=== PATIENT | female | born 1995 | race Hispanic/Latino ===

== ENCOUNTER 2020-09-19 18:02 | Emergency (ER) | payer MEDICAID ==
[~2020-09-19] VITALS: Ht 152.4 cm; Wt 67.1 kg
[2020-09-19 18:05] VITALS: BP 105/65
[2020-09-19 18:47] LABS: APPEARANCE,URINE Clear (CLEAR); BILIRUBIN,URINE Negative (NEGATIVE); COLOR,URINE Yellow (YELLOW); GLUCOSE, URINE (UA) Negative (NEGATIVE); KETONES,URINE Negative (NEGATIVE); LEUKOCYTE ESTERASE ,URINE Negative (NEGATIVE); NITRATE,URINE Negative (NEGATIVE); OCCULT BLOOD,URINE Negative (NEGATIVE); PROTEIN,URINE Negative (NEGATIVE)
[2020-09-19 18:54] LABS: BASOPHILS % (AUTO) 0.4 % (0.0-5.0); EOSINOPHILS % (AUTO) 0.6 % (0.0-8.0); HEMATOCRIT 37.9 % (36-48); LYMPHOCYTES % (AUTO) 25.7 % (21.0-51.0); MEAN CORPUSCULAR HGB CONC 33.2 g/dL (32.0-36.0); MEAN CORPUSCULAR VOLUME 90.2 fL (79-99); MONOCYTES % (AUTO) 6.8 % (3.0-13.0); NEUTROPHILS % (AUTO) 66.2 % (40.0-77.0); PLATELET COUNT (AUTO) 192 K/uL (130-400); RED CELL DISTRIBUTION WIDTH 12.8 % (11.0-15.5); WHITE BLOOD COUNT (AUTO) 9.7 K/uL (4.8-10.8)
[2020-09-19 19:20] VITALS: BP 102/62
[2020-09-19 19:34] LABS: ALBUMIN 3.7 g/dL (3.5-5.0); BILIRUBIN,TOTAL 0.2 mg/dL (0.2-1.0); CREATININE 0.7 mg/dL (0.5-1.5); POTASSIUM 3.6 mmol/L (3.5-5.1); TOTAL PROTEIN, SERUM 7.7 g/dL (6.0-8.3)
[2020-09-19] MEDS ORDERED: PREN-61 PO (19:44)
[2020-09-19 20:45] VITALS: BP 111/68
== END 2020-09-19 20:47 | disposition home or self-care (01) ==
LOC: EDH 18:25
DX: O26.891 Other specified pregnancy related conditions, first trimester (principal); R10.2 Pelvic and perineal pain; Z3A.01 Less than 8 weeks gestation of pregnancy
CPT/HCPCS: 36415; 76801; 80053; 81003; 84702; 85025

== ENCOUNTER 2021-03-02 20:28 | Observation (INO) | payer MEDICAID ==
[~2021-03-02] VITALS: Ht 152.4 cm; Wt 68.5 kg
[~2021-03-02 20:28] MED LIST: PREN-61 PO
[2021-03-02] MEDS ORDERED: PREN-196 PO (20:49)
[2021-03-02] MEDS ORDERED: FERR-82 PO (20:49)
[2021-03-02 21:00] LABS: APPEARANCE,URINE Clear (CLEAR); BILIRUBIN,URINE Negative (NEGATIVE); COLOR,URINE Yellow (YELLOW); GLUCOSE, URINE (UA) Negative (NEGATIVE); KETONES,URINE 15 mg/dL (NEGATIVE); LEUKOCYTE ESTERASE ,URINE Negative (NEGATIVE); NITRATE,URINE Negative (NEGATIVE); OCCULT BLOOD,URINE Negative (NEGATIVE); PROTEIN,URINE Negative (NEGATIVE)
[2021-03-02] MEDS ORDERED: LACTATED RINGERS 1000ML 1,000 ML IV SCH (21:00)
[2021-03-02 21:07] LABS: AMPHET/METH SCREEN,URINE NEGATIVE (NEGATIVE); BARBITURATE SCREEN, URINE NEGATIVE (NEGATIVE); BENZODIAZEPINES SCREEN,URINE NEGATIVE (NEGATIVE); CANNABINOID SCREEN,URINE NEGATIVE (NEGATIVE); COCAINE SCREEN,URINE NEGATIVE (NEGATIVE); OPIATE SCREEN,URINE NEGATIVE (NEGATIVE); PHENCYCLIDINE SCREEN,URINE NEGATIVE (NEGATIVE)
[2021-03-02 21:32] VITALS: BP 104/64
[2021-03-02] MEDS ORDERED: CEFTRIAXONE 1G VIAL IVP ONE (22:00)
[2021-03-02 22:03] LABS: BASOPHILS % (AUTO) 0.1 % (0.0-5.0); EOSINOPHILS % (AUTO) 1.6 % (0.0-8.0); HEMATOCRIT 32.6 % (36-48); MEAN CORPUSCULAR HEMOGLOBIN 29.4 pg (27.0-33.0); MEAN CORPUSCULAR HGB CONC 33.1 g/dL (32.0-36.0); MEAN CORPUSCULAR VOLUME 88.8 fL (79-99); MONOCYTES % (AUTO) 6.7 % (3.0-13.0); PLATELET COUNT (AUTO) 160 K/uL (130-400); RED BLOOD CELL COUNT(AUTO) 3.67 MIL/uL (4.00-5.50); RED CELL DISTRIBUTION WIDTH 14.1 % (11.0-15.5); WHITE BLOOD COUNT (AUTO) 9.6 K/uL (4.8-10.8)
== END 2021-03-03 07:15 | disposition home or self-care (01) ==
LOC: EDH 20:28 → LDH 20:29
PROVIDERS: ADMIT Obstetrics & Gynecology; ATTEND Obstetrics & Gynecology
DX: O26.893 Other specified pregnancy related conditions, third trimester (principal); R10.30 Lower abdominal pain, unspecified; R10.2 Pelvic and perineal pain; Z3A.29 29 weeks gestation of pregnancy; Z79.899 Other long term (current) drug therapy
CPT/HCPCS: 36415; 76770; 76805; 80305; 81003; 85025; 96361; 96374; G0378 ×9; J0696; J7120; 96360

== ENCOUNTER 2022-03-23 11:19 | Emergency (ER) | payer MEDICAID ==
[~2022-03-23] VITALS: Ht 152.4 cm; Wt 72.6 kg
[~2022-03-23 11:19] MED LIST changes: +FERR-82 PO; +PREN-196 PO
[2022-03-23 12:30] VITALS: BP 139/81
[2022-03-23] MEDS ORDERED: D-ME118S47 PO (12:35)
[2022-03-23] MEDS ORDERED: FLUT16H NASAL (12:35)
[2022-03-23] MEDS ORDERED: BENZ-39 PO (12:35)
== END 2022-03-23 13:53 | disposition left against medical advice (07) ==
LOC: EDH 11:19
DX: R50.9 Fever, unspecified (principal); R11.2 Nausea with vomiting, unspecified; J02.9 Acute pharyngitis, unspecified; R05.9 Cough, unspecified; Z79.899 Other long term (current) drug therapy; Z98.890 Other specified postprocedural states

== ENCOUNTER 2025-03-20 23:02 | Emergency (ER) | payer SELFPAY ==
[~2025-03-20] VITALS: Ht 152.4 cm; Wt 67.1 kg
[~2025-03-20 23:02] MED LIST changes: +BENZ-39 PO; +BROM118S48 PO; +FLUT16H NASAL
--- NOTE | 2025-03-20 23:16 | NUR ---
UA CUP PROVIDED
[2025-03-21 00:29] LABS: APPEARANCE,URINE CLOUDY (CLEAR); GLUCOSE, URINE (UA) NEGATIVE (NEGATIVE); LEUKOCYTE ESTERASE ,URINE 250 Leu/uL (NEGATIVE); NITRATE,URINE NEGATIVE (NEGATIVE); OCCULT BLOOD,URINE LARGE (NEGATIVE)
[2025-03-21 00:30] LABS: ADD UA MICROSCOPIC YES
[2025-03-21 00:32] LABS: IMMATURE GRANULOCYTE ABSOLUTE 0.01 K/uL (0-1); NUCLEATED RED BLOOD CELLS 0.0 % (0.0-0.19); PLATELET COUNT (AUTO) 195 K/uL (130-400); RED BLOOD CELL COUNT(AUTO) 4.10 MIL/uL (4.00-5.50); RED CELL DISTRIBUTION WIDTH 12.5 % (11.0-15.5); WHITE BLOOD COUNT (AUTO) 7.3 K/uL (4.8-10.8)
[2025-03-21 00:33] LABS: SQUAMOUS EPITHELIAL CELL,UR MOD /HPF (0-2)
[2025-03-21 00:33] LABS: CREATININE 0.7 mg/dL (0.5-1.0); GLOMERULAR FILTR. RATE CALC 119.0 mL/min (>90); GLUCOSE,RANDOM 97.0 mg/dL (70-105); SODIUM SERUM 139.0 mmol/L (136-145); UREA NITROGEN, BLOOD 8.0 mg/dL (7-18)
[2025-03-21 00:44] LABS: HCG,QUANTITATIVE 2.0 mIU/mL (0-5)
--- NOTE | 2025-03-21 00:46 | ERN ---
ED Note History of Present Illness Stated Complaint: VAGINAL BLEEDING, CRAMPING Chief Complaint: Vaginal Bleeding Time Seen by MD: 23:13 Time Seen by Midlevel: 23:13 Dictation: The patient is a 29-year-old female with a history of who presents to the emergency department with complaints of vaginal spotting onset today. Patient denies any saturating pads. Denies any abdominal pain. Denies fevers or urinary discomfort. Reports she took a test at home and was positive. Last menstrual period was February 21. A1 Allergies: Coded Allergies: No Known Drug Allergies (Unverified Allergy, Unknown, 09/19/20) Home Meds Active Scripts Cephalexin Monohydrate (Keflex) 500 Mg Cap, 500 MG PO BID for 7 Days, #14 CAP Prov:JULISSA PLUNKETT [facility] 03/21/25 Benzonatate (Tessalon Perles) 100 Mg Cap, 2 CAP PO TID PRN for COUGH for 14 Days, #42 CAP Prov:JESSENIA SANCHEZ V [facility] 03/23/22 D-Methorphan Hb/P-Epd HCl/Bpm (Bromfed Dm Cough Syrup) 118 Ml Syrup, 10 ML PO Q4HPRN PRN for COUGH for 10 Days, #200 ML Prov:JESSENIA SANCHEZ V [facility] 03/23/22 Fluticasone Propionate (Flonase Nasal [place]) 50 Mcg/[place], 1 SPRAY NASAL DAILY PRN for NASAL CONGESTION for 10 Days, #1 EA Prov:JESSENIA SANCHEZ V [facility] 03/23/22 Vit No.78/Iron/FA (Prenatabs FA Tablet) 1 Each Tablet, 1 EACH PO DAILY, #100 TAB Prov:JOHANNA DONALDSON 09/19/20 Reported Medications Ferrous Sulfate (Iron) 325 Mg Tablet, 325 MG PO DAILYLUNCH, TAB 03/02/21 Vit No.124/Iron/FA ( Vitamin Tablet) 1 Each Tablet, 1 EACH PO DAILYLUNCH, TAB 03/02/21 Past Medical History Past Medical History: No Pertinent History Surgical History: Family History: Negative Social History: Negative LMP: Feb 17, 2025 : 4 Para: 2 Aborts: 1 RN Note Reviewed/Agreed w/PFSH: Yes Review of System Dictation Constitutional: Negative for fever,chills, and weight loss Eyes: Negative for injury, pain,redness, and discharge ENT: Negative for injury,pain or swelling Cardiovascular: Negative for chest pain, palpitations, and edema Respiratory: Negative for shortness of breath, cough, and wheezing, Abdomen/GI: Negative for abdominal pain, nausea, vomiting, diarrhea, and constipation Back: Negative for injury and pain : Positive for vaginal bleeding MS/Extremity: Negative for injury and deformity Skin: Negative for rash, and discoloration Neuro: Negative for headache, weakness, numbness, tingling, and seizure Psych: Negative for suicide ideation, homicidal ideation, and hallucinations Initial Vital Sign VS Vital Signs Date Time Temp Pulse Resp B/P (MAP) Pulse Ox O2 Delivery O2 Flow Rate FiO2 03/20/25 23:13 97.5 74 18 128/85 100 Room Air 03/20/25 23:57 0 21 Physical Exam Dictation Vital Signs reviewed General Appearance: Alert, oriented x 3, no acute distress, well developed, nourished. Head and Face: non-traumatic. Eyes: PERRL, pink conjunctivas, eyelid no trauma, anterior chamber with arcus senilis. Ears: Pinnas intact and no signs of trauma or erythema ear canals clear and no discharge TM no erythema Nose: No discharge, no bleeding. Oropharynx: Mouth normal, tongue pink. pharynx clear,no erythema, tonsils no exudates, no abscesses noted, mucous membrane moist Neck: Supple, non-tender, no thyromegaly, no masses, no JVD, no bruits Breast:Deferred Chest:No tenderness, no crepitus, no paradoxical movement, no retractions Lungs:Clear, well-ventilated, symmetric, no rales, no wheezing, no rhonchi, no stridor, good breath sounds bilaterally Heart: Regular rate, regular rhythm, no murmur, no gallops Vascular: no peripheral edema, Abdomen: Soft, positive bowel sounds, nondistended, no guarding, nontender, no rebound, no masses no hepatomegaly, no splenomegaly, no Ghosh's sign, no hernias. Rectal: Deferred Genital: Deferred Neurological: Normal speech, motor function intact, sensory function intact Musculoskeletal: Neck nontender, full range of motion, back nontender, full range of motion, Extremities: nontender, full range of motion Skin: Color pink, dry, no turgor, no rash, no lacerations, no abrasions, no contusions. Lymphatic: Deferred Results (Laboratory/Radiology) Laboratory/Radiology Laboratory Tests Test 03/20/25 23:45 03/20/25 23:57 White Blood Count 7.3 K/uL (4.8-10.8) Red Blood Count 4.10 MIL/uL (4.00-5.50) Hemoglobin 12.3 g/dL (12.0-16.0) Hematocrit 37.3 % (36-48) Mean Corpuscular Volume 91.0 fL (79-99) Mean Corpuscular Hemoglobin 30.0 pg (27.0-33.0) Mean Corpuscular Hemoglobin Concent 33.0 g/dL (32.0-36.0) Red Cell Distribution Width 12.5 % (11.0-15.5) Platelet Count 195 K/uL (130-400) Mean Platelet Volume 11.4 fL (7.5-10.5) H Immature Granulocyte % (Auto) 0.1 % (0-1) Neutrophils (%) (Auto) 48.1 % (40.0-77.0) Lymphocytes (%) (Auto) 40.8 % (21.0-51.0) Monocytes (%) (Auto) 9.3 % (3.0-13.0) Eosinophils (%) (Auto) 1.4 % (0.0-8.0) Basophils (%) (Auto) 0.3 % (0.0-5.0) Neutrophils # (Auto) 3.5 K/uL (1.8-7.7) Lymphocytes # (Auto) 3.0 K/uL (1.0-4.8) Monocytes # (Auto) 0.7 K/uL (0.1-1.0) Eosinophils # (Auto) 0.10 K/uL (0.00-0.70) Basophils # (Auto) 0.02 K/uL (0.00-0.20) Absolute Immature Granulocyte (auto 0.01 K/uL (0-1) Nucleated Red Blood Cells 0.0 % (0.0-0.19) Sodium Level 139 mmol/L (136-145) Potassium Level 3.5 mmol/L (3.5-5.1) Chloride Level 106 mmol/L (101-111) Carbon Dioxide Level 29 mmol/L (21-32) Blood Urea Nitrogen 8 mg/dL (7-18) Creatinine 0.7 mg/dL (0.5-1.0) Glomerular Filtration Rate Calc 119 mL/min (>90) Random Glucose 97 mg/dL (70-105) Total Calcium 8.4 mg/dL (8.5-10.1) L Human Chorionic Gonadotropin, Quant 2 mIU/mL (0-5) Urine Color LIGHT-YELLOW (YELLOW) Urine Appearance CLOUDY (CLEAR) H Urine pH 7.0 (5.0-8.0) Urine Specific [place] 1.015 (1.001-1.031) Urine Protein NEGATIVE mg/dL (NEGATIVE) Urine Glucose (UA) NEGATIVE mg/dL (NEGATIVE) Urine Ketones NEGATIVE mg/dL (NEGATIVE) Urine Occult Blood LARGE (NEGATIVE) H Urine Nitrate NEGATIVE (NEGATIVE) Urine Bilirubin NEGATIVE mg/dL (NEGATIVE) Urine Urobilinogen 0.2 mg/dL (0.2-1.0) Urine Leukocyte Esterase 250 Kimberley/uL (NEGATIVE) H Urine RBC 2-5 /HPF (0-1) H Urine WBC 11-25 /HPF (0-1) H Urine Squamous Epithelial Cells MOD /HPF (0-2) Urine Bacteria RARE /HPF (None Seen) REASON: vaginal bleeding ORDERING PHYSICIAN: JULISSA PLUNKETT PROCEDURE: OB <14 - US OB <14 WEEKS EXAM: US Obstetrical, Complete <14 weeks CLINICAL HISTORY: Vaginal bleeding. TECHNIQUE: Transabdominal imaging of the maternal pelvis and a < 14-week gestation with image documentation. COMPARISON: None provided. FINDINGS: GESTATION: 4 weeks 4 days by LMP UTERUS: Unremarkable. No myometrial mass. Size measuring 71 x 45 x 48 mm. Endometrium measuring 4.1 mm. No evidence of a gestational sac or retained products of conception was visualized at the current scan. CERVIX: Closed. Unremarkable. OVARIES: Unremarkable. No mass. Right ovary measures 31 x 24 x 27 mm. Left ovary measures 30 x 23 x 23 mm. FREE FLUID: No free fluid. IMPRESSION: No evidence of an intrauterine or extrauterine at the current scan, with a normally visualized endometrial cavity. Recommend follow-up with ultrasound and beta HCG correlation. Labs Reviewed?: Yes ED Course ED Course Orders Procedure Category Date Status Time Cbc With Differential LAB 03/20/25 Complete 23:30 Urinalysis Profile LAB 03/20/25 Complete 23:30 Basic Metabolic Panel LAB 03/20/25 Complete 23:30 Hcg,Quantitative LAB 03/20/25 Complete 23:30 Us Ob <14 Weeks US 03/20/25 Resulted 23:30 Culture Urine LETICIA 03/21/25 In Process 00:30 Ceftriaxone 1g Vial PHA 03/21/25 Complete (Rocephine 1g Inj) 01:00 Current Medications Medications (Trade) Dose Ordered Sig/Yolis Route PRN Reason Start Time Stop Time Status Last Admin Dose Admin Ceftriaxone Sodium (ROCEphine 1G INJ) 1 gm ONCE ONCE IM 03/21/25 01:00 03/21/25 01:01 DC Vital Signs Date Time Temp Pulse Resp B/P (MAP) Pulse Ox O2 Delivery O2 Flow Rate FiO2 03/20/25 23:57 97.9 70 16 99/62 100 Room Air* 0 21 03/20/25 23:13 97.5 74 18 128/85 100 Room Air Medical Decision Making MDM The patient is a 29-year-old female with a history of who presents to the emergency department with complaints of vaginal spotting onset today. Patient denies any saturating pads. Denies any abdominal pain. Denies fevers or urinary discomfort. Reports she took a test at home and was positive. Last menstrual period was February 21. A1 CBC showed no leukocytosis, no anemia, chemistry showed no electrolyte imbalance, hCG of two, ultrasound did not show an intrauterine . Patient's urinalysis was consistent with a UTI. Patient will be treated for urinary tract infection and instructed to follow up with the primary doctor. Patient otherwise in no acute distress, nontoxic appearance, no abdominal pain. Differential diagnosis: Threatened , UTI, early , menstrual cycle Need for hospitalization: Patient does not meet criteria for hospitalization. There are no social concerns with this patient. DX & DISP Disposition: Discharge Departure Impression: Primary Impression: UTI (urinary tract infection) Additional Impression: Vaginal spotting Condition: Stable Scripts Cephalexin Monohydrate (Keflex) 500 Mg Cap 500 MG PO BID for 7 Days, #14 CAP Prov: JULISSA PLUNKETT [employer] 03/21/25 Additional Instructions: Urinalysis showed a urinary tract infection. The rest of your labs were unremarkable. Please follow up with your primary doctor in 1-2 days. If anything worsens please return to ER. FOLLOW-UP WITH PRIMARY CARE PROVIDER IN 1 TO 2 DAYS. TAKE MEDICATIONS DIRECTED HERE IN THE EMERGENCY ROOM. OKAY TO CONTINUE HOME MEDICATIONS UNLESS OTHERWISE DISCUSSED DURING YOUR VISIT IN THE EMERGENCY ROOM TODAY. RETURN TO YOUR NEAREST EMERGENCY ROOM IF SYMPTOMS WORSEN OR IF THERE IS NO IMPROVEMENT. CALL 911 IF YOU NEED IMMEDIATE ASSISTANCE. TAKE TYLENOL [id number] N EEDED AND IF NO CONTRAINDICATIONS ARE PRESENT. INCREASE ORAL HYDRATION. A WOUND CULTURE OR URINE CULTURE WAS ORDERED HERE IN THE EMERGENCY ROOM DEPARTMENT PLEASE FOLLOW-UP WITH PRIMARY CARE PROVIDER AND ADVISE THEM TO GET REPEAT PORTS FROM OUR FACILITY. IF YOU HAD ANY MANNY WRAP/SPLINTS THAT WERE APPLIED HERE, PLEASE DO NOT REMOVE THEM UNTIL YOU SEE YOUR PRIMARY CARE OR SPECIALTY. Referrals: ANALISA SOTO MD (PCP) Time of Disposition: 01:08 I have reviewed the case, and I agree with, Diagnosis and Plan JULISSA PLUNKETT [facility] Mar 21, 2025 00:46
[2025-03-21] MEDS ORDERED: CEPH500B PO (01:10)
--- NOTE | 2025-03-21 01:18 | HMCIMG ---
EXAM: US Obstetrical, Complete <14 weeks CLINICAL HISTORY: Vaginal bleeding. TECHNIQUE: Transabdominal imaging of the maternal pelvis and a < 14-week gestation with image documentation. COMPARISON: None provided. FINDINGS: GESTATION: 4 weeks 4 days by LMP UTERUS: Unremarkable. No myometrial mass. Size measuring 71 x 45 x 48 mm. Endometrium measuring 4.1 mm. No evidence of a gestational sac or retained products of conception was visualized at the current scan. CERVIX: Closed. Unremarkable. OVARIES: Unremarkable. No mass. Right ovary measures 31 x 24 x 27 mm. Left ovary measures 30 x 23 x 23 mm. FREE FLUID: No free fluid. IMPRESSION: No evidence of an intrauterine or extrauterine at the current scan, with a normally visualized endometrial cavity. Recommend follow-up with ultrasound and beta HCG correlation. /Shantanu
[2025-03-21 01:40] VITALS: BP 110/64; PULSE 66; RESP 16; TEMP 98.2; O2SAT 100
== END 2025-03-21 01:40 | disposition home or self-care (01) ==
LOC: EDH 23:02
DX: O23.41 Unspecified infection of urinary tract in pregnancy, first trimester (principal); N39.0 Urinary tract infection, site not specified; O26.851 Spotting complicating pregnancy, first trimester; Z3A.01 Less than 8 weeks gestation of pregnancy
CPT/HCPCS: 99285; 76801; 80048; 84702; 85025; 87086; 81001; 36415; 96372; J0696